=== PATIENT | male | born 1945 | race Caucasian/White ===

== ENCOUNTER 2016-06-04 | Outpatient (CLI) | payer MEDICARE | END 2016-06-04 20:32 | disposition critical access hospital (66) | CPT/HCPCS: A0425; A0429 ==

== ENCOUNTER 2016-06-04 21:00 | Emergency (ER) | payer MEDICARE ==
[2016-06-04] MEDS ORDERED: HYDROcod/ACETAM 5/325 MG TABLET PO STA (21:11)
[2016-06-04] MEDS ORDERED: HYDROcod/ACETAM 5/325 MG TABLET ONE ×2 (21:22→21:23)
== END 2016-06-04 22:20 | disposition home or self-care (01) ==
DX: F11.10 Opioid abuse, uncomplicated (principal); M25.561 Pain in right knee; M25.562 Pain in left knee; G89.29 Other chronic pain; M17.0 Bilateral primary osteoarthritis of knee; I10 Essential (primary) hypertension; I25.2 Old myocardial infarction; E78.00 Pure hypercholesterolemia, unspecified; E11.9 Type 2 diabetes mellitus without complications; Z79.84 Long term (current) use of oral hypoglycemic drugs; N40.0 Benign prostatic hyperplasia without lower urinary tract symptoms; R33.9 Retention of urine, unspecified; Z79.82 Long term (current) use of aspirin
CPT/HCPCS: 99283; A9270

== ENCOUNTER 2017-08-17 10:17 | Outpatient (CLI) | payer OTHER | END 2017-08-17 23:59 | disposition short-term general hospital (02) | LOC: EMS 10:17 | PROVIDERS: ATTEND Surgery | DX: R07.9 Chest pain, unspecified (principal); R06.02 Shortness of breath | CPT/HCPCS: A0170; A0425; A0427 ==

== ENCOUNTER 2017-08-25 15:56 | Emergency (ER) | payer MEDICARE, OTHER ==
[2017-08-25] MEDS ORDERED: SODIUM CHLORIDE 0.9% 1,000 ML IV ONE ×2 (16:39→22:10)
--- NOTE | 2017-08-25 16:46 | ED Physician Documentation ---
History of Present Illness - Stated complaint Stated Complaint: LOW BP - Chief complaint Chief Complaint: Cardiac - History obtained from History obtained from: Patient, Family (), Other (PMD) - History of Present Illness Timing: Yesterday - Additonal information Additional information: The patient is a 71-year-old male with history of hypertension, diabetes, and hyperlipidemia, who is sent from his primary physician's office for evaluation and treatment of low blood pressure. He was discharged from [facility] one week ago after hospitalization for chest pain and shortness of breath. He underwent nuclear stress test at that time, and was discharged with no change in his medications. Since yesterday he has felt generally weak and has "dizziness" and fatigue. He has felt thirsty, and today has had nausea with vomiting. He denies fever, chest pain, cough or shortness of breath, diarrhea, or dysuria. When seen in his primary physician's office today his blood pressure was initially 108/80, and on recheck was even lower at 90/50. He did not take his antihypertensive medication this morning. Review of Systems Constitutional: reports: Fatigue. denies: Fever Ears: denies: Tinnitus/ringing Nose: denies: Congestion Throat: denies: Sore throat Cardiac: denies: Chest pain / pressure, Palpitations Respiratory: denies: Dyspnea, Cough GI: reports: Nausea, Vomiting. denies: Abdominal Pain, Diarrhea : denies: Dysuria Skin: denies: Rash Musculoskeletal: denies: Extremity pain, Extremity swelling Neurologic: reports: Generalized weakness. denies: Focal weakness, Numbness, Headache PD PAST MEDICAL HISTORY - Past Medical History Cardiovascular: High cholesterol, [place], Hypertension Respiratory: None Endocrine/Autoimmune: Type 2 diabetes GI: Hepatitis, Hiatal hernia : Benign prostate hypertrophy, Retention, Renal insuffiency, Nocturia HEENT: Chronic vision loss Psych: Anxiety Musculoskeletal: None, Chronic back pain Derm: None - Past Surgical History Past Surgical History: Yes General: Cholecystectomy, Colonoscopy Cardiovascular: Coronary stent - Present Medications Home Medications: Ambulatory Orders Medication Instructions Recorded Confirmed Alprazolam 0.5 mg PO DAILY 12/31/12 08/31/14 Aspirin 81 mg PO DAILY 12/31/12 06/04/16 Cholecalciferol (Vitamin D3) 5,000 unit PO DAILY 12/31/12 08/31/14 [Vitamin D] Lisinopril 20 mg PO DAILY 12/31/12 06/04/16 Metformin HCl [Metformin HCl ER] 1,000 mg PO DAILY 12/31/12 06/04/16 Metoprolol Tartrate [Lopressor] 50 mg PO BID 12/31/12 06/04/16 Simvastatin [Zocor] 40 mg PO QPM 12/31/12 06/04/16 Tamsulosin [Flomax] 0.4 mg PO DAILY 12/31/12 08/31/14 Amlodipine Besylate [Norvasc] 5 mg PO DAILY 08/31/14 08/31/14 Cyclobenzaprine [Flexeril] 10 mg PO DAILY 08/31/14 08/31/14 Gabapentin 200 mg PO TID 08/31/14 08/31/14 Temazepam [Restoril] 15 mg PO DAILY PM 08/31/14 06/04/16 rOPINIRole [Requip] 0.5 mg PO DAILY 08/31/14 06/04/16 HYDROcod/ACETAM 5/325 [[place] 5/325] 1 - 2 ea PO Q6H PRN #10 tablet 06/04/16 Hydrocodone/Acetaminophen 1 - 2 each PO Q8HR PRN 06/04/16 06/04/16 [Hydrocodon-Acetaminophen 5-325] - Allergies Allergies/Adverse Reactions: Allergies Allergy/AdvReac Type Severity Reaction Status Date / Time NSAIDS (Non-Steroidal AdvReac Unknown Verified 08/25/17 16:10 Anti-Inflamma tramadol AdvReac Unknown Verified 08/25/17 16:10 - Social History Does the pt smoke?: No Smoking Status: Never smoker Does the pt drink ETOH?: No Does the pt have substance abuse?: Yes - Immunizations Immunizations are current?: Yes - POLST Patient has POLST: No PD ED PE NORMAL - Vitals Vital signs reviewed: Yes (Blood pressure at low end of normal range, and 97/47. ) - General General: Alert and oriented X 3, Other (Alert, but fatigued appearing male who is overweight.) - HEENT HEENT: Atraumatic, EOMI, Pharynx benign - Neck Neck: Supple, no meningeal sign, No adenopathy, No JVD - Cardiac Cardiac: RRR, No murmur - Respiratory Respiratory: No respiratory distress, Clear bilaterally - Abdomen Abdomen: Soft, Non tender, Other (Rotund abdomen.) - Back Back: No CVA TTP, No spinal TTP - Derm Derm: No rash - Extremities Extremities: No edema, No calf tenderness / cord - Neuro Neuro: Alert and oriented X 3, No motor deficit, No sensory deficit, Other ( Generalized weakness, without focal motor or sensory deficit.) Results - Vitals Vitals: Oxygen O2 Source Nasal cannula Oxygen Flow Rate 2 - EKG (time done) 17:20 Rate: Rate (enter#) (85) Rhythm: NSR [place]: Anterior hemiblock Intervals: RBBB Other comments: Other comments (Baseline wander too great to allow meaningful interpretation.) Computer interpretation: Agree with computer 19:33 Rate: Rate (enter#) (90) Rhythm: NSR, LAE [place]: LAD, Anterior hemiblock Intervals: RBBB Ischemia: No: ST elevation c/w ischemia Other comments: Other comments Computer interpretation: Agree with computer - Labs Labs: Laboratory Tests 08/25/17 08/25/17 08/25/17 16:30 16:30 16:30 WBC 10.4 RBC 3.89 L Hgb 12.1 L Hct 37.7 L MCV 96.9 H MCH 31.0 MCHC 32.0 RDW 14.9 Plt Count 249 MPV 8.7 Neut # 8.8 H Lymph # 0.9 L [place] # 0.6 Eos # 0.0 Baso # 0.1 Absolute Nucleated RBC 0.01 Nucleated RBC % 0.1 D-Dimer Sodium 134 L Potassium 5.2 H Chloride 96 L Carbon Dioxide 24 Anion Gap 14.0 H BUN 55 H Creatinine 4.6 H Estimated GFR (MDRD) 13 L Glucose 111 H Calcium 9.5 Total Bilirubin 0.5 AST 77 H ALT 40 Alkaline Phosphatase 49 Troponin I 1.38 H* Total Protein 7.8 Albumin 4.1 Globulin 3.7 Albumin/Globulin Ratio 1.1 Lipase 24 Urine Color Urine Clarity Urine pH Ur Specific [place] Urine Protein Urine Glucose (UA) Urine Ketones Urine Occult Blood Urine Nitrite Urine Bilirubin Urine Urobilinogen Ur Leukocyte Esterase Urine RBC Urine WBC Ur Squamous Epith Cells Urine Bacteria Urine Casts Ur Microscopic Review Urine Culture Comments 08/25/17 08/25/17 16:30 21:00 WBC RBC Hgb Hct MCV MCH MCHC RDW Plt Count MPV Neut # Lymph # [place] # Eos # Baso # Absolute Nucleated RBC Nucleated RBC % D-Dimer > 1050.0 H Sodium Potassium Chloride Carbon Dioxide Anion Gap BUN Creatinine Estimated GFR (MDRD) Glucose Calcium Total Bilirubin AST ALT Alkaline Phosphatase Troponin I Total Protein Albumin Globulin Albumin/Globulin Ratio Lipase Urine Color DARK YELLOW Urine Clarity HAZY Urine pH 5.5 Ur Specific [place] >=1.030 H Urine Protein TRACE Urine Glucose (UA) NEGATIVE Urine Ketones NEGATIVE Urine Occult Blood MODERATE H Urine Nitrite NEGATIVE Urine Bilirubin SMALL H Urine Urobilinogen 0.2 (NORMAL) Ur Leukocyte Esterase NEGATIVE Urine RBC 0-5 Urine WBC 6-10 H Ur Squamous Epith Cells MOD Squamous H Urine Bacteria Moderate H Urine Casts 0-2 Granular Casts Ur Microscopic Review INDICATED Urine Culture Comments NOT INDICATED - Rads (name of study) 1-view CXR Radiology: Prelim report reviewed, EMP read contemporaneously, See rad report ( Mild left mid lung atelectasis. Otherwise unremarkable.) PD MEDICAL DECISION MAKING - ED course Complexity details: reviewed old records, reviewed results, re-evaluated patient , considered differential, d/w patient, d/w family, d/w otm consultant ED course: The patient's presentation is significant for acute renal failure with a creatinine of 4.6, compared to a normal creatinine of 0.8 one week ago. The most likely reason for his acute renal failure is the IV nucleotide he received during a nuclear stress test 1 week ago. In addition he has an elevated troponin of 1.38, and an elevated d-dimer of greater than 1050. He denies chest pain or shortness of breath, but his pulse oximetry was low at 87% on room air when he initially arrived in the emergency department. It improves to 96% on 2 L NC. The elevation of troponin and d-dimer may well be a result of the acute renal failure. His electrocardiogram reveals right bundle branch block and left anterior fascicular block, but no acute ST elevation. His chest x-ray reveals mild left mid lung atelectasis, and is otherwise unremarkable. I doubt acute cardiac ischemia. Pulmonary embolus is a consideration, but the patient is not tachypneic and denies shortness of breath. His acute renal failure precludes CT pulmonary angiogram study. I considered starting him on heparin, but in consultation with hospitalist at [facility], I was advised that the d-dimer elevation may well be due to the acute renal failure, and there is insufficient evidence to treat presumptively for possible pulmonary embolus. Treatment in the emergency department included administration of normal saline 1 L IV. The patient felt subjectively improved after this treatment, and he looked brighter and more interactive. His blood pressure improved to 120/78. I discussed his condition initially with Dr. Riojas, hospitalist at [facility]. She initially accepted the patient, but later it was discovered that the patient has [facility] insurance. Subsequently I discussed his condition with the [facility] transfer center, and the patient will be accepted by Dr. Oscar Jimenez. He is being transported by [facility] ambulance. Transfer forms were completed. Departure - Departure Disposition: 02 Transfer Acute Care Hosp Clinical Impression: Acute renal failure d/t procedure, Elevated troponin level, Elevated d-dimer Condition: Fair Discharge Date/Time: 08/25/17 23:03
[2017-08-25 16:49] LABS: BASOPHILS # (AUTO) 0.1 10^3/uL (0.0-0.1); BASOPHILS % (AUTO) 0.5 %; EOSINOPHILS % (AUTO) 0.1 %; HGB - HEMOGLOBIN 12.1 g/dL (14.0-18.0); LYMPHOCYTES # (AUTO) 0.9 10^3/uL (1.5-3.5); LYMPHOCYTES % (AUTO) 8.6 %; MEAN CORPUSCULAR VOLUME 96.9 fL (80.0-94.0); MEAN PLATELET VOLUME 8.7 fL (7.4-11.4); MONOCYTES # (AUTO) 0.6 10^3/uL (0.0-1.0); MONOCYTES % (AUTO) 6.1 %; NEUTROPHILS # (AUTO) 8.8 10^3/uL (1.5-6.6); NEUTROPHILS % (AUTO) 84.7 %; PLT - PLATELET COUNT 249 10^3/uL (130-450); RED BLOOD COUNT 3.89 10^6/uL (4.70-6.10); RED CELL DISTRIBUTION WIDTH 14.9 % (12.0-15.0); WHITE BLOOD COUNT 10.4 x10^3/uL (4.8-10.8)
[2017-08-25 16:57] LABS: ALBUMIN 4.1 g/dL (3.2-5.5); ALBUMIN/GLOBULIN RATIO 1.1 (1.0-2.2); BILIRUBIN,TOTAL 0.5 mg/dL (0.2-1.0); CALCIUM 9.5 mg/dL (8.5-10.3); CREATININE 4.6 mg/dL (0.6-1.2); TOTAL PROTEIN 7.8 g/dL (6.7-8.2)
--- NOTE | 2017-08-25 18:09 | XRAY Preliminary Report ---
Exam: XR CHEST 1 VIEW X-RAY IMPRESSION: Mild left midlung atelectasis. Otherwise unremarkable. [facility] SITE ID: [id number]
--- NOTE | 2017-08-25 18:10 | XRAY Report ---
EXAM: CHEST RADIOGRAPHY EXAM DATE: 08/25/2017 05:47 PM. CLINICAL HISTORY: Hypoxia. COMPARISON: 09/09/2014. TECHNIQUE: 1 view. FINDINGS: Lungs/Pleura: There is mild new linear density in the left midlung. No consolidation or edema. Negati ve for pneumothorax. Mediastinum: There is mild aortic arch atherosclerotic calcification. Other: None. IMPRESSION: Mild left midlung atelectasis. Otherwise unremarkable. [facility] Referring Provider Line: [phone] SITE ID: [id number]
[2017-08-25] MEDS ORDERED: SODIUM CHLORIDE 0.9% 500 ML IV ONE (21:11)
[2017-08-25 21:40] LABS: GLUCOSE, URINE (UA) NEGATIVE (NEGATIVE); KETONES,URINE (UA) NEGATIVE (NEGATIVE); LEUKOCYTE ESTERASE, URINE NEGATIVE (NEGATIVE); NITRITE,URINE NEGATIVE (NEGATIVE); OCCULT BLOOD,URINE MODERATE (NEGATIVE); PH,URINE 5.5 PH (5.0-7.5); PROTEIN,URINE TRACE mg/dL (NEGATIVE); UROBILINOGEN,URINE 0.2 (NORMAL) E.U./dL (NORMAL)
[2017-08-25 21:51] LABS: CLARITY,URINE HAZY (CLEAR); ICTOTEST,URINE POSITIVE
[2017-08-25 21:52] LABS: BACTERIA,URINE Moderate /HPF (None Seen); BILIRUBIN,URINE SMALL (NEGATIVE); RBC,URINE 0-5 /HPF (0-5); SQUAMOUS EPITHELIAL CELL,UR MOD Squamous (<= Few)
[2017-08-25 21:53] LABS: CASTS, URINE 0-2 Granular Casts /LPF
[2017-08-25] MEDS ORDERED: FUROSEMIDE 20 MG/2 ML VIAL IVP STA (22:10)
[2017-08-25] MEDS ORDERED: FUROSEMIDE 20 MG/2 ML VIAL IVP ONE (22:17)
[2017-08-25 23:03] VITALS: BP 118/59
== END 2017-08-25 23:03 | disposition short-term general hospital (02) ==
LOC: ED 15:56
DX: N17.8 Other acute kidney failure (principal); N14.1 Nephropathy induced by other drugs, medicaments and biological substances; T50.995A Adverse effect of other drugs, medicaments and biological substances, initial encounter; R74.8 Abnormal levels of other serum enzymes; R79.89 Other specified abnormal findings of blood chemistry; I45.2 Bifascicular block; J98.11 Atelectasis; I10 Essential (primary) hypertension; E11.9 Type 2 diabetes mellitus without complications; Z79.84 Long term (current) use of oral hypoglycemic drugs; E78.5 Hyperlipidemia, unspecified; Z79.82 Long term (current) use of aspirin; I25.2 Old myocardial infarction; Z95.5 Presence of coronary angioplasty implant and graft
CPT/HCPCS: 36415; 71045; 80053; 81001; 81003; 83690; 84484; 85025; 85379; 87086; 93005; 96361; 96374; 99285

== ENCOUNTER 2018-09-12 14:12 | Outpatient (CLI) | payer MEDICARE | END 2018-09-12 14:13 | disposition short-term general hospital (02) | LOC: EMS 14:12 | PROVIDERS: ATTEND Surgery | DX: R07.9 Chest pain, unspecified (principal) | CPT/HCPCS: A0425; A0427 ==

== ENCOUNTER 2019-02-19 10:09 | Outpatient (CLI) | payer MEDICARE ==
--- NOTE | 2019-02-19 15:52 | XRAY Report ---
Reason: PAIN IN RIGHT SHOULDER Procedure Date: 02/19/2019 Accession Number: [id number] / [id number] Procedure: XRS - Shoulder 3 View RT CPT Code: Final Report FULL RESULT: EXAM: RIGHT SHOULDER RADIOGRAPHY EXAM DATE: 02/19/2019 10:30 AM. CLINICAL HISTORY: 3 weeks of right shoulder pain with no known injury. COMPARISON: None. TECHNIQUE: 3 views. FINDINGS: Bones: Subchondral lucencies and sclerosis of the humeral head are noted.. No fracture or bone lesion. Joints: The glenohumeral and acromioclavicular joints are normally located with calcified body projecting anteriorly and medially to the surgical neck of the humerus felt to represent a loose body within the glenohumeral joint. Degenerative changes of the AC joint are also seen. Soft tissues: The visualized hemithorax is unremarkable. No soft tissue swelling. IMPRESSION: Degenerative changes of glenohumeral joint and AC joint with suspected loose bodies within the glenohumeral joint as well as sclerosis of the humeral head suggestive of advanced degenerative changes at the glenohumeral articulation. [facility]
== END 2019-02-19 10:10 | disposition home or self-care (01) ==
LOC: DI.S 10:09
PROVIDERS: ATTEND Nurse Practitioner Family
DX: M19.011 Primary osteoarthritis, right shoulder (principal)

== ENCOUNTER 2019-06-25 12:36 | Outpatient (CLI) | payer MEDICARE | END 2019-06-25 12:37 | disposition short-term general hospital (02) | LOC: EMS 12:36 | PROVIDERS: ATTEND Surgery | DX: R07.9 Chest pain, unspecified (principal); R11.0 Nausea; R61 Generalized hyperhidrosis | CPT/HCPCS: A0425; A0427 ==

== ENCOUNTER 2019-10-10 13:04 | Outpatient (CLI) | payer MEDICARE ==
[~2019-10-10 13:04] MED LIST: BUFFERED LIDOCAINE 10 ML SYRINGE ONE
[2019-10-10] MEDS ORDERED: BUPIVACAINE 0.5% PF 10 ML VIAL IM ONE (14:43)
[2019-10-10] MEDS ORDERED: TRIAMCINOLONE 40 MG/ML VIAL IM ONE (14:45)
[2019-10-10] MEDS ORDERED: BUFFERED LIDOCAINE 10 ML SYRINGE IU ONE (14:46)
[2019-10-10] MEDS ORDERED: iohexoL-240 10 ML VIAL IVP ONE (14:46)
--- NOTE | 2019-10-10 15:05 | XRAY Report ---
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 Written informed consent was obtained and placed in the chart. The patient was placed in an appropriate position on the fluoroscopy table, and a site was chosen for percutaneous access under fluoroscopic guidance. Local anesthetic was administered using a 1% lidocaine solution. A hypodermic or spinal needle was then used to access the symptomatic joint. Intra-articular location of the needle tip was confirmed by injecting a small amount of contrast, followed by steroid administration. The needle was then withdrawn, and a bandage applied to the puncture site. FINDINGS: Joint injected: joint Medications injected: 1 mL of 40 mg/mL Kenalog and 4 mL 0.5% Ropivacaine mixed. Complications: None. IMPRESSION: Successful fluoroscopically guided administration of steroid and anaesthetic solution into the joint Reviewed by: Nolberto Urban MD on 10/10/2019 3:04 PM PDT Approved by: Nolberto Urban MD on 10/10/2019 3:04 PM PDT Station ID: [id number]
== END 2019-10-10 13:05 | disposition home or self-care (01) ==
LOC: DI 13:04
PROVIDERS: ATTEND Orthopaedic Surgery Sports Medicine
DX: M19.011 Primary osteoarthritis, right shoulder (principal)
CPT/HCPCS: 20610; 77002

== ENCOUNTER 2023-03-09 08:00 | Outpatient (CLI) | payer OTHER ==
--- NOTE | 2023-03-09 20:09 | XRAY Report ---
PROCEDURE: Knee 4 View BILAT INDICATIONS: BILAT KNEE PAIN TECHNIQUE: 5 views of the knee(s) were acquired. COMPARISON: None. FINDINGS: Bones: Left knee: No fractures or dislocations. Severe lateral and patellofemoral compartment and moderate to severe medial compartment joint space narrowing and juxta-articular osteophytosis. Multiple calcif ied bodies in the joint space which may represent loose bodies, best seen on lateral view. No suspici ous bony lesions. Right knee: No fracture or dislocation. Moderate medial and patellofemoral compartment and mild later al compartment joint space narrowing and juxta articular osteophytosis. No suspicious bony lesions. Soft tissues: Small left and trace right knee joint effusions. No suspicious soft tissue calcificati ons or masses. Bilateral lower extremity vascular calcifications. IMPRESSION: 1.No acute bony abnormality. 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 Multiple calcified bodies in the joint space, which may represent loose b odies. 3.Right knee demonstrates moderate medial and patellofemoral compartment and mild lateral compartment osteoarthritis. Reviewed by: Madeleine Leyva MD on 03/09/2023 8:08 PM PST Approved by: Madeleine Leyva MD on 03/09/2023 8:08 PM PST Station ID: [id number]
== END 2023-03-09 23:59 | disposition home or self-care (01) ==
LOC: DI.WOS 08:00
PROVIDERS: ATTEND Physician Assistant Surgical
DX: M17.0 Bilateral primary osteoarthritis of knee (principal); M25.862 Other specified joint disorders, left knee